=== PATIENT | female | born 1985 | race Caucasian/White ===

== ENCOUNTER → 2021-05-03 | Outpatient (CLI) | payer BC ==
[2021-05-03 19:05] LABS: Basophils # (A) 0.03 X 10*3/uL (0.00-0.10); Basophils % (A) 0.2 %; Eosinophils # (A) 0.12 X 10*3/uL (0.04-0.35); Eosinophils % (A) 0.8 %; HCT 40.5 % (37.2-46.3); HGB 13.2 g/dL (12.0-15.0); Lymphocytes # (A) 1.68 X 10*3/uL (0.90-5.00); Lymphocytes % (A) 11.8 %; MCH 29.5 pg (27.0-32.0); MCHC 32.6 g/dL (32.0-37.0); MCV 90.4 fL (80.0-97.0); Monocytes # (A) 0.42 X 10*3/uL (0.20-1.00); Monocytes % (A) 2.9 %; Neutrophils # (A) 11.93 X 10*3/uL (1.80-7.70); Neutrophils % (A) 83.7 %; Platelet Count 303 X 10*3/uL (140-440); RBC 4.48 X 10*6/uL (4.10-5.20); RDW 12.2 % (11.5-14.5); WBC 14.27 X 10*3/uL (4.50-10.00)
[2021-05-03 21:14] LABS: Gliadin AB IgA, Deaminated NEGATIVE (NEGATIVE); Gliadin AB IgA, Unit 2.9 U/mL; Gliadin AB IgG, Deaminated NEGATIVE (NEGATIVE)
== END | disposition home or self-care (01) ==
LOC: LABWHC1 14:18
PROVIDERS: ATTEND Allergy & Immunology
DX: K21.9 Gastro-esophageal reflux disease without esophagitis (principal); K52.9 Noninfective gastroenteritis and colitis, unspecified
CPT/HCPCS: 36415; 82784; 82785; 83516; 85025

== ENCOUNTER 2021-11-24 19:38 | Emergency (ER) | payer BC ==
[2021-11-24 21:18] VITALS: BP 118/78; PULSE 80; RESP 16; TEMP 98.1
[2021-11-24] MEDS ORDERED: MORPHINE SULFATE 2 MG/ML SYRINGE IM STA (22:15)
--- NOTE | 2021-11-24 22:22 | ED ---
General Adult HPI - General Chief complaint: Extremity Injury, Lower Stated complaint: arm injury Time Seen by Provider: 11/24/21 22:03 Source: patient Mode of arrival: ambulatory Limitations: no limitations - History of Present Illness Initial comments: She was a 36-year-old female presenting with a chief complaint of right forearm pain. This occurred earlier today when moving furniture she was walking backwards and tripped hitting her arm against the door jam. She is now complaining of pain localized at the mid forearm with radiation up to the elbow and down to the fingers. She is able to move the fingers but this causes a great deal of pain. She has full sensation of the fingertips. No pain or injury above the elbow. She admits to some swelling and abrasions to the arm. Denies numbness, tingling, redness, loss of range of motion, had injury, loss of consciousness, use of blood thinners. - Related Data Allergies Allergy/AdvReac Type Severity Reaction Status Date / Time Penicillins Allergy Rash/Hives Verified 11/24/21 21:18 Review of Systems ROS Statement: Those systems with pertinent positive or pertinent negative responses have been documented in the HPI. ROS Other: All systems not noted in ROS Statement are negative. Past Medical History Past Medical History: No Reported History History of Any Multi-Drug Resistant Organisms: None Reported Past Surgical History: Tubal Ligation Additional Past Surgical History / Comment(s): right ankle surgey Past Psychological History: Anxiety, Depression, PTSD Smoking Status: Never smoker Past Alcohol Use History: Occasional Past Drug Use History: Marijuana General Exam Limitations: no limitations General appearance: alert, in no apparent distress Head exam: Present: atraumatic, normocephalic, normal inspection Eye exam: Present: normal appearance, PERRL, EOMI. Absent: scleral icterus, conjunctival injection, periorbital swelling Neck exam: Present: normal inspection Right Shoulder Exam: Present: normal inspection, full ROM. Absent: tenderness, swelling Upper Arm exam: Present: normal inspection, full ROM. Absent: tenderness, swelling Elbow exam: Present: normal inspection. Absent: full ROM (Secondary to pain), tenderness Forearm Wrist exam: Present: tenderness, swelling, abrasion. Absent: normal inspection (Abrasions and swelling), full ROM (Indurated pain) Vascular: Absent: vascular compromise Neurological exam: Present: alert, oriented X3, CN II-XII intact Psychiatric exam: Present: normal affect, normal mood Skin exam: Present: warm, dry, intact, normal color. Absent: rash Course Vital Signs 11/24/21 21:13 Temperature 98.1 F Pulse Rate 80 Respiratory 16 Rate Blood Pressure 118/78 O2 Sat by Pulse 95 Oximetry Medical Decision Making - Medical Decision Making And is a 36-year-old female presenting with chief complaint of R forearm pain. I to presentation she was moving furniture and walking backwards when she tripped and hit her right forearm on a door jam. She admits to pain, swelling, abrasions, and pain with moving the wrist and fingers. She has full sensation and is neurovascularly intact. She was given 2 mg IM morphine for pain control. Forearm x-ray shows no acute fracture or dislocation. I educated the patient on resting, icing, compression, and elevation. Take Motrin and Tylenol at home as needed for pain control. Follow Up with PCP in one to 2 days. Follow-up with orthopedics if needed. Educated patient on return parameters. Return to the ER with worsening symptoms or new onset alarming symptoms. Answered all questions. Patient conveyed verbal understanding and agreed to the plan. - Radiology Data Radiology results: report reviewed, image reviewed Forearm X-ray: No acute fracture or dislocation Disposition Clinical Impression: Forearm strain Disposition: HOME SELF-CARE Condition: Good Instructions (If sedation given, give patient instructions): Arm Pain (ED) Additional Instructions: You may use Motrin and Tylenol at home as needed for pain control. Rest, ice, compress, elevate injury to prevent swelling and further pain. Follow up with PCP in one to 2 days. Follow-up with orthopedics if needed. Return to ER with worsening symptoms or new onset alarming symptoms, including but not limited to increased pain, swelling, redness, fever, chills, numbness, tingling, weakness. Is patient prescribed a controlled substance at d/c from ED?: No Referrals: None,Stated [Primary Care Provider] - 1-2 days Tobin Mansfield PAC [[employer]] - 12/01/21 Time of Disposition: 23:05
--- NOTE | 2021-11-24 22:52 | XR ---
EXAMINATION TYPE: XR forearm RT DATE OF EXAM: 11/24/2021 COMPARISON: NONE HISTORY: Fall. Pain TECHNIQUE: 2 views FINDINGS: Radius and ulna appear intact. I see no fracture nor dislocation. The elbow joint and wrist joint appear intact. IMPRESSION: Negative right forearm exam.
== END 2021-11-24 23:21 | disposition home or self-care (01) ==
LOC: EC 19:38
DX: S56.811A Strain of other muscles, fascia and tendons at forearm level, right arm, initial encounter (principal); Z88.0 Allergy status to penicillin; W01.0XXA Fall on same level from slipping, tripping and stumbling without subsequent striking against object, initial encounter; Y93.01 Activity, walking, marching and hiking
CPT/HCPCS: 73090; 99283; 96372; J2270

== ENCOUNTER → 2022-06-13 | Outpatient (CLI) | payer BC ==
--- NOTE | 2022-06-13 12:13 | XR ---
EXAMINATION TYPE: XR hand complete LT DATE OF EXAM: 06/13/2022 11:45 AM INDICATION: Patient age:Female; 37 years old; Reason for study: M47.12 M47.817 Spondylosis M79.642 Pain left hand; COMPARISON: None TECHNIQUE: Frontal, lateral and oblique views of the left hand were obtained. FINDINGS: Normal alignment of the visualized joints. No acute osseous pathology is identified. No e vidence of soft tissue swelling. IMPRESSION: No acute osseous pathology.
--- NOTE | 2022-06-13 12:19 | XR ---
EXAMINATION TYPE: XR cervical spine w flex/ext DATE OF EXAM: 06/13/2022 11:45 AM INDICATION: Patient age:Female; 37 years old; Reason for study: M47.12 M47.817 Spondylosis M79.642 Pain left hand; [facility]. COMPARISON: None TECHNIQUE: The cervical spine was imaged in 4 projections. Frontal, lateral, odontoid and bilateral o blique. Additional extension and flexion views were obtained. FINDINGS: The osseous structures show normal alignment without evidence of an acute fracture. There is no signi ficant osteophyte formation. The intervertebral disk spaces are preserved. Pedicles are intact. Sof t tissues are within normal limits. The odontoid appears intact. No abnormal gapping seen on flexion or extension views. Mild facet joint arthropathy noted. IMPRESSION: 1. No fracture or dislocation. 2. Mild degenerative disc disease changes of the cervical spine.
--- NOTE | 2022-06-13 12:22 | XR ---
EXAMINATION TYPE: XR lumbar spine 2 or 3V DATE OF EXAM: 06/13/2022 11:44 AM INDICATION: Patient age:Female; 37 years old; Reason for study: M47.12 M47.817 Spondylosis M79.642 Pain left hand; [facility]. COMPARISON: None TECHNIQUE: Frontal, lateral and coned in L5-S1 lateral views of the spine. FINDINGS: No evidence of any acute osseous pathology. No evidence of loss of vertebral body height i s seen. There is normal alignment of the lumbar vertebral bodies. No significant degeneration changes throughout the spine. Mild facet joint arthropathy changes. IMPRESSION: 1. No acute fracture. 2. Mild multilevel disc degeneration.
== END | disposition home or self-care (01) ==
LOC: RADXRMAIN 10:55
PROVIDERS: ATTEND Internal Medicine
DX: M47.12 Other spondylosis with myelopathy, cervical region (principal); M47.817 Spondylosis without myelopathy or radiculopathy, lumbosacral region; M79.642 Pain in left hand
CPT/HCPCS: 72052; 72100

== ENCOUNTER 2022-06-24 15:17 | Emergency (ER) | payer BC ==
[2022-06-24 15:58] VITALS: TEMP 98.2
[2022-06-24 16:33] LABS: Basophils % (A) 0 %; Eosinophils # (A) 0.2 k/uL (0-0.7); Eosinophils % (A) 2 %; HCT 39.9 % (34.0-46.0); HGB 13.8 gm/dL (11.4-16.0); Lymphocytes # (A) 1.7 k/uL (1.0-4.8); Lymphocytes % (A) 14 %; MCH 30.5 pg (25.0-35.0); MCHC 34.5 g/dL (31.0-37.0); MCV 88.3 fL (80.0-100.0); Mean Platelet Volume 7.8; Monocytes # (A) 0.4 k/uL (0-1.0); Monocytes % (A) 4 %; Neutrophils # (A) 9.3 k/uL (1.3-7.7); Neutrophils % (A) 78 %; Platelet Count 257 k/uL (150-450); RBC 4.52 m/uL (3.80-5.40); RDW 11.9 % (11.5-15.5); WBC 11.9 k/uL (3.8-10.6)
--- NOTE | 2022-06-24 16:38 | XR ---
KUB HISTORY: Right-sided abdomen pain Frontal KUB on 2 images, no comparisons Lung bases are clear. There is no evident bowel obstruction or pneumoperitoneum. Bone mineralization is normal. No pathologic calcification. IMPRESSION: No acute abnormalities evident.
[2022-06-24 16:41] LABS: ALT 15 U/L (4-34); AST 23 U/L (14-36); African American GFR (CKD) >90 (>60 ml/min/1.73 sqM); Albumin 4.6 g/dL (3.5-5.0); Alkaline Phosphatase 58 U/L (38-126); Amylase 66 U/L (30-110); Anion Gap 12 mmol/L; Blood Urea Nitrogen 16 mg/dL (7-17); Calcium 9.3 mg/dL (8.4-10.2); Carbon Dioxide 19 mmol/L (22-30); Chloride 104 mmol/L (98-107); Glucose 92 mg/dL (74-99); Lipase 128 U/L (23-300); Non-African American GFR(CKD) >90 (>60 ml/min/1.73 sqM); Potassium 4.2 mmol/L (3.5-5.1); Sodium 135 mmol/L (137-145); Total Bilirubin 0.5 mg/dL (0.2-1.3); Total Protein 7.7 g/dL (6.3-8.2)
[2022-06-24 16:48] LABS: Appearance,Urine Cloudy (Clear); Bacteria,Urine Rare /hpf; Bilirubin,Urine Negative (Negative); Blood,Urine Trace (Negative); Color,Urine Yellow; Glucose,Urine (UA) Negative (Negative); Ketones,Urine Negative (Negative); Leukocyte Esterase,Urine Moderate (Negative); Mucus,Urine Rare /hpf; Nitrite,Urine Negative (Negative); Protein,Urine Negative (Negative); RBC,Urine 2 /hpf (0-5); Specific Gravity,Urine 1.026 (1.001-1.035); Squamous Epithelial Cell,Urine 13 /hpf (0-4); Urobilinogen,Urine <2.0 mg/dL (<2.0); WBC,Urine 4 /hpf (0-5)
[2022-06-24] MEDS ORDERED: ONDANSETRON 4 MG/2 ML VIAL IVP STA (18:55)
[2022-06-24] MEDS ORDERED: HYDROmorphone 1 MG/ML 1 ML SYRINGE IVP STA ×2 (18:55→21:45)
[2022-06-24] MEDS ORDERED: SODIUM CHLORIDE 0.9% 1,000 ML IV STA (18:55)
[2022-06-24] MEDS ORDERED: FAMOTIDINE 20 MG/2 ML VIAL IV STA (18:56)
--- NOTE | 2022-06-24 19:00 | ED ---
General Adult HPI - General Chief complaint: Nausea/Vomiting/Diarrhea Stated complaint: ABD Pain,Right sided pain Time Seen by Provider: 06/24/22 18:07 Source: patient, RN notes reviewed Mode of arrival: ambulatory Limitations: no limitations - History of Present Illness Initial comments: Patient is a pleasant 37-year-old female presenting to the emergency department with concerns with abdominal discomfort. Onset of symptoms was mostly today. Patient has had some nausea and vomiting. Patient has had some diarrhea. Abdominal discomfort is more so to the right and upper. No new back pain. No fevers. No history of chronic similar symptoms previously. Patient has decreased appetite otherwise discomfort has not been associated with oral intak e. - Related Data Previous Rx's Medication Instructions Recorded Dicyclomine [Bentyl] 20 mg PO QID PRN #15 tablet 06/24/22 Allergies Allergy/AdvReac Type Severity Reaction Status Date / Time Penicillins Allergy Rash/Hives Verified 06/24/22 15:58 Review of Systems ROS Statement: Those systems with pertinent positive or pertinent negative responses have been documented in the HPI. ROS Other: All systems not noted in ROS Statement are negative. Constitutional: Denies: fever Eyes: Denies: eye pain ENT: Denies: ear pain Respiratory: Denies: cough Cardiovascular: Denies: chest pain Endocrine: Denies: fatigue Gastrointestinal: Reports: as per HPI, abdominal pain Genitourinary: Denies: dysuria Musculoskeletal: Denies: arthralgia Skin: Denies: rash Neurological: Denies: weakness Past Medical History Past Medical History: No Reported History History of Any Multi-Drug Resistant Organisms: MRSA Date of last positivie culture/infection: 2014 MDRO Source:: breast Past Surgical History: Tubal Ligation Additional Past Surgical History / Comment(s): right ankle surgey Past Psychological History: Anxiety, Depression, PTSD Smoking Status: Never smoker Past Alcohol Use History: Occasional Past Drug Use History: Marijuana General Exam Limitations: no limitations General appearance: alert, in no apparent distress Head exam: Present: normocephalic Eye exam: Present: normal appearance Neck exam: Present: normal inspection Respiratory exam: Present: normal lung sounds bilaterally Cardiovascular Exam: Present: regular rate, normal rhythm GI/Abdominal exam: Present: soft, tenderness (Moderate tenderness of her abdomen), normal bowel sounds. Absent: distended, guarding, rebound, rigid, pulsatile mass Extremities exam: Present: normal inspection Neurological exam: Present: alert Psychiatric exam: Present: normal affect, normal mood Skin exam: Present: normal color Course Vital Signs 06/24/22 06/24/22 06/24/22 15:54 21:07 21:08 Temperature 98.2 F Pulse Rate 54 L 77 Respiratory 20 18 Rate Blood Pressure 142/70 152/102 O2 Sat by Pulse 96 Oximetry Medical Decision Making - Medical Decision Making Patient reevaluated and resting comfortably in bed. Patient and family updated on results and need for follow-up. Patient states she is feeling much better. - Lab Data Result diagrams: 06/24/22 16:25 06/24/22 16:25 Lab Results 06/24/22 06/24/22 06/24/22 Range/Units 16:25 16:25 16:25 WBC 11.9 H (3.8-10.6) k/uL RBC 4.52 (3.80-5.40) m/uL Hgb 13.8 (11.4-16.0) gm/dL Hct 39.9 (34.0-46.0) % MCV 88.3 (80.0-100.0) fL MCH 30.5 (25.0-35.0) pg MCHC 34.5 (31.0-37.0) g/dL RDW 11.9 (11.5-15.5) % Plt Count 257 (150-450) k/uL MPV 7.8 Neutrophils % 78 % Lymphocytes % 14 % Monocytes % 4 % Eosinophils % 2 % Basophils % 0 % Neutrophils # 9.3 H (1.3-7.7) k/uL Lymphocytes # 1.7 (1.0-4.8) k/uL Monocytes # 0.4 (0-1.0) k/uL Eosinophils # 0.2 (0-0.7) k/uL Basophils # 0.0 (0-0.2) k/uL Sodium 135 L (137-145) mmol/L Potassium 4.2 (3.5-5.1) mmol/L Chloride 104 (98-107) mmol/L Carbon Dioxide 19 L (22-30) mmol/L Anion Gap 12 mmol/L BUN 16 (7-17) mg/dL Creatinine 0.82 (0.52-1.04) mg/dL Est GFR (CKD-EPI)AfAm >90 (>60 ml/min/1.73 sqM) Est GFR (CKD-EPI)NonAf >90 (>60 ml/min/1.73 sqM) Glucose 92 (74-99) mg/dL Calcium 9.3 (8.4-10.2) mg/dL Total Bilirubin 0.5 (0.2-1.3) mg/dL AST 23 (14-36) U/L ALT 15 (4-34) U/L Alkaline Phosphatase 58 (38-126) U/L Total Protein 7.7 (6.3-8.2) g/dL Albumin 4.6 (3.5-5.0) g/dL Amylase 66 (30-110) U/L Lipase 128 (23-300) U/L HCG, Qual Urine Color Yellow Urine Appearance Cloudy H (Clear) Urine pH 5.0 (5.0-8.0) Ur Specific Pioneer 1.026 (1.001-1.035) Urine Protein Negative (Negative) Urine Glucose (UA) Negative (Negative) Urine Ketones Negative (Negative) Urine Blood Trace H (Negative) Urine Nitrite Negative (Negative) Urine Bilirubin Negative (Negative) Urine Urobilinogen <2.0 (<2.0) mg/dL Ur Leukocyte Esterase Moderate H (Negative) Urine RBC 2 (0-5) /hpf Urine WBC 4 (0-5) /hpf Ur Squamous Epith Cells 13 H (0-4) /hpf Urine Bacteria Rare H (None) /hpf Urine Mucus Rare H (None) /hpf 06/24/22 Range/Units 16:25 WBC (3.8-10.6) k/uL RBC (3.80-5.40) m/uL Hgb (11.4-16.0) gm/dL Hct (34.0-46.0) % MCV (80.0-100.0) fL MCH (25.0-35.0) pg MCHC (31.0-37.0) g/dL RDW (11.5-15.5) % Plt Count (150-450) k/uL MPV Neutrophils % % Lymphocytes % % Monocytes % % Eosinophils % % Basophils % % Neutrophils # (1.3-7.7) k/uL Lymphocytes # (1.0-4.8) k/uL Monocytes # (0-1.0) k/uL Eosinophils # (0-0.7) k/uL Basophils # (0-0.2) k/uL Sodium (137-145) mmol/L Potassium (3.5-5.1) mmol/L Chloride (98-107) mmol/L Carbon Dioxide (22-30) mmol/L Anion Gap mmol/L BUN (7-17) mg/dL Creatinine (0.52-1.04) mg/dL Est GFR (CKD-EPI)AfAm (>60 ml/min/1.73 sqM) Est GFR (CKD-EPI)NonAf (>60 ml/min/1.73 sqM) Glucose (74-99) mg/dL Calcium (8.4-10.2) mg/dL Total Bilirubin (0.2-1.3) mg/dL AST (14-36) U/L ALT (4-34) U/L Alkaline Phosphatase (38-126) U/L Total Protein (6.3-8.2) g/dL Albumin (3.5-5.0) g/dL Amylase (30-110) U/L Lipase (23-300) U/L HCG, Qual Not Detected Urine Color Urine Appearance (Clear) Urine pH (5.0-8.0) Ur Specific Pioneer (1.001-1.035) Urine Protein (Negative) Urine Glucose (UA) (Negative) Urine Ketones (Negative) Urine Blood (Negative) Urine Nitrite (Negative) Urine Bilirubin (Negative) Urine Urobilinogen (<2.0) mg/dL Ur Leukocyte Esterase (Negative) Urine RBC (0-5) /hpf Urine WBC (0-5) /hpf Ur Squamous Epith Cells (0-4) /hpf Urine Bacteria (None) /hpf Urine Mucus (None) /hpf - Radiology Data Radiology results: report reviewed (Computed tomography scan of abdomen and pelvis reveals no acute process) Disposition Clinical Impression: Abdominal pain Disposition: HOME SELF-CARE Condition: Stable Instructions (If sedation given, give patient instructions): Abdominal Pain (ED) Additional Instructions: Prescriptions at the pharmacy. Please do follow-up with primary care physician in the next day or 2 for recheck. Return for uncontrolled vomiting, increased pain, fevers, worsening change in symptoms or any concerns. Prescriptions: Dicyclomine [Bentyl] 20 mg PO QID PRN #15 tablet PRN Reason: Pain Is patient prescribed a controlled substance at d/c from ED?: No Referrals: Radha Angulo MD [Primary Care Provider] - 1-2 days Time of Disposition: 21:21
--- NOTE | 2022-06-24 21:09 | CT ---
EXAMINATION TYPE: CT abdomen pelvis w con DATE OF EXAM: 06/24/2022 COMPARISON: HISTORY: Abdominal pain CT DLP: mGycm Automated exposure control for dose reduction was used. CONTRAST: Performed , patient injected with mL of . The contrast was Isovue 100 mL. Lung bases are clear. No pleural effusion. Heart size is normal. No pericardial effusion. Liver splee n and stomach pancreas gallbladder appear intact. The bile ducts are nondilated. There is no adrenal mass. Kidneys show satisfactory contrast opacification. No hydronephrosis. Ureter s are not dilated. No retroperitoneal adenopathy. The bladder distends smoothly. No inguinal hernia. No free fluid in the pelvis. Uterus is anteverted. The lumbar vertebrae have normal alignment. Posterior elements are intact. No compression fracture. Small bowel pattern is normal. Appendix not clearly seen. No sign thickened appendix. IMPRESSION: Negative CT scan of the abdomen and pelvis.
[2022-06-24 22:07] VITALS: BP 128/67; PULSE 70; RESP 19
== END 2022-06-24 22:08 | disposition home or self-care (01) ==
LOC: EC 15:17
DX: R10.9 Unspecified abdominal pain (principal); F12.90 Cannabis use, unspecified, uncomplicated; Z88.0 Allergy status to penicillin
CPT/HCPCS: 36415; 80053; 82150; 83690; 85025; 81001; 84703; 74018; 74177; 99284; 96374; 96375 ×2; 96376; 96361; J2405; J1170; Q9967

== ENCOUNTER 2023-05-04 17:01 | Emergency (ER) | payer BC ==
--- NOTE | 2023-05-04 17:21 | ED ---
General Adult HPI <Eric Gibson - Last Filed: 05/04/23 17:21> - General Source: patient, RN notes reviewed Mode of arrival: ambulatory Limitations: no limitations <Nathalie Tomlinson - Last Filed: 05/05/23 00:50> - General Stated complaint: neck injury Time Seen by Provider: 05/04/23 19:27 - History of Present Illness Initial comments: 38-year-old female presenting to the ED with a chief complaint neck pain. Patient states was pulling down pints 2 days ago and felt a pinch in her neck. Since then notes neck pain, headache, and intermittent floaters. Not the worst headache of her life. (Eric Gibson) 38-year-old female presenting with chief complaint of headache. Patient states that she injured her neck while doing yard work a few days ago. She states that she has history of migraines and has been getting more frequent migraines since this injury. She admits to pain as well as numbness and tingling that radiates from the neck down both arms. No fevers or chills. No nausea or vomiting. States that today she was riding in a car that was going through construction which caused aggravation to her injury. (Nathalie Tomlinson) - Related Data Home Medications Medication Instructions Recorded Confirmed Dextroamphetamine/Amphetamine 5 mg PO BID 10/13/22 10/18/22 [Adderall] Levothyroxine Sodium [Synthroid] 75 mg PO DAILY 10/13/22 10/18/22 Meloxicam [Mobic] 7.5 mg PO DAILY 10/13/22 10/18/22 Previous Rx's Medication Instructions Recorded Cyclobenzaprine [Flexeril] 10 mg PO TID PRN #15 tab 05/04/23 Allergies Allergy/AdvReac Type Severity Reaction Status Date / Time Penicillins Allergy Rash/Hives Verified 05/04/23 17:21 Review of Systems ROS Other: All systems not noted in ROS Statement are negative. <Eric Gibson - Last Filed: 05/04/23 17:21> ROS Other: All systems not noted in ROS Statement are negative. <Nathalie Tomlnison - Last Filed: 05/05/23 00:50> ROS Statement: Those systems with pertinent positive or pertinent negative responses have been documented in the HPI. Past Medical History Past Medical History: GERD/Reflux, Osteoarthritis (OA), Thyroid Disorder Additional Past Medical History / Comment(s): HYPOTHYROID, CHRONIC BACK PAIN AND JOINT PAIN, ADHD, recent loose stools abdominal pain with bloating, b/l tinnitus History of Any Multi-Drug Resistant Organisms: MRSA Date of last positivie culture/infection: 2014 MDRO Source:: breast Past Surgical History: Tubal Ligation Additional Past Surgical History / Comment(s): right ankle surgery Past Anesthesia/Blood Transfusion Reactions: No Reported Reaction Smoking Status: Former smoker <Eric Gibson - Last Filed: 05/04/23 17:21> General Exam Limitations: no limitations General appearance: alert Eye exam: Present: normal appearance Neck exam: Present: normal inspection Extremities exam: Present: normal inspection Back exam: Present: normal inspection Neurological exam: Present: alert <Eric Gibson - Last Filed: 05/04/23 17:21> Limitations: no limitations General appearance: alert, in no apparent distress Head exam: Present: atraumatic, normocephalic, normal inspection Eye exam: Present: normal appearance, PERRL, EOMI. Absent: scleral icterus, conjunctival injection, periorbital swelling Neck exam: Present: normal inspection, tenderness Respiratory exam: Absent: respiratory distress Neurological exam: Present: alert, oriented X3, CN II-XII intact Expanded Patient oriented to: Present: person, place, time Speech: Present: fluid speech Cranial nerves: EOM's Intact: Normal Eye Response: (4) open spontaneously Motor Response: (6) obeys commands Verbal Response: (5) oriented Ivan Total: 15 Psychiatric exam: Present: normal affect, normal mood Skin exam: Present: warm, dry, intact, normal color. Absent: rash <Nathalie Tomlinson - Last Filed: 05/05/23 00:50> Course Vital Signs 05/04/23 05/04/23 17:19 21:31 Temperature 98.1 F 98.2 F Pulse Rate 77 58 L Respiratory 20 18 Rate Blood Pressure 140/91 103/83 O2 Sat by Pulse 99 98 Oximetry Medical Decision Making <Eric Gibson - Last Filed: 05/04/23 17:21> - Lab Data Result diagrams: 05/04/23 19:50 05/04/23 19:50 <Nathalie Tomlinson - Last Filed: 05/05/23 00:50> - Medical Decision Making Quicknote performed. Signed Eric Gibson PA-C (Eric Gibson) Was pt. sent in by a medical professional or institution (, PA, BIOMEDICAL ENGINEERING DIRECTOR, urgent care, hospital, or correction...) When possible be specific @ -No Did you speak to anyone other than the patient for history (EMS, parent, family, police, friend...)? What history was obtained from this source @ -No Did you review nursing and triage notes (agree or disagree)? Why? @ -I reviewed and agree with nursing and triage notes Were old charts reviewed (outside hosp., previous admission, EMS record, old EKG, old radiological studies, urgent care reports/EKG's, correction records)? Report findings @ -No old charts were reviewed Differential Diagnosis (chest pain, altered mental status, abdominal pain women, abdominal pain men, vaginal bleeding, weakness, fever, dyspnea, syncope, headache, dizziness, GI bleed, back pain, seizure, CVA, palpatations, mental health, musculoskeletal)? @ -MDM Differential Headache: Migraine, tension, cluster, carbon monoxide, central venous thrombosis, pension karma temporal arteritis, acute closure glaucoma, intercranial hemorrhage, mastoiditis, sinusitis, head injury this is not meant to be an all-inclusive list. EKG interpreted by me (3pts min.). @ -As above X-rays interpreted by me (1pt min.). @ -X-ray shows no fracture, spinal straightening CT interpreted by me (1pt min.). @ -None done U/S interpreted by me (1pt. min.). @ -None done What testing was considered but not performed or refused? (CT, X-rays, U/S, labs)? Why? @ -None What meds were considered but not given or refused? Why? @ -None Did you discuss the management of the patient with other professionals (professionals i.e. , PA, BIOMEDICAL ENGINEERING DIRECTOR, lab, RT, psych nurse, social worker psychiatric, electrical experimental mechanic, teacher, training systems officer, geriatric case manager)? Give summary @ -No Was smoking cessation discussed for >3mins.? @ -No Was critical care preformed (if so, how long)? @ -No Were there social determinants of health that impacted care today? How? (Homelessness, low income, unemployed, alcoholism, drug addiction, transportation, low edu. Level, literacy, decrease access to med. care, [facility], rehab)? @ -No Was there de-escalation of care discussed even if they declined (Discuss DNR or withdrawal of care, Hospice)? DNR status @ -No What co-morbidities impacted this encounter? (DM, HTN, Smoking, COPD, CAD, Cancer, CVA, ARF, Chemo, Hep., AIDS, mental health diagnosis, sleep apnea, morbid obesity)? @ -None Was patient admitted / discharged? Hospital course, mention meds given and route, prescriptions, significant lab abnormalities, going to OR and other pertinent info. @ -38-year-old female presenting with chief complaint of headache and neck pain. Patient states that she injured her neck while doing yard work the other day. States that she has been more predisposed to migraine since the injury, she has history of migraines. States that these feel consistent with her regular migraines. Pain is located mainly on the right side of the neck. There is tenderness to the paraspinal muscles. No nuchal rigidity. No fevers. No vision or hearing changes. Patient is given migraine cocktail and Norflex, and reassessment she improvement in her symptoms. She is provided with a prescription for cyclobenzaprine at home. Follow-up with PCP. Report back to ER with any new or worsening symptoms. Discussed return parameters and answered all questions. Patient conveyed verbal understanding and agreed to the plan. I discussed this case in detail with my attending Dr. Sky Undiagnosed new problem with uncertain prognosis? @ -No Drug Therapy requiring intensive monitoring for toxicity (Heparin, Nitro, Insulin, Cardizem)? @ -No Were any procedures done? @ -No Diagnosis/symptom? @ -Neck strain, migraine Acute, or Chronic, or Acute on Chronic? @ -Acute Uncomplicated (without systemic symptoms) or Complicated (systemic symptoms)? @ -Uncomplicated Side effects of treatment? @ -No Exacerbation, Progression, or Severe Exacerbation? @ -No Poses a threat to life or bodily function? How? (Chest pain, USA, SD, pneumonia, PE, COPD, DKA, ARF, appy, cholecystitis, CVA, Diverticulitis, Homicidal, Suicidal, threat to staff... and all critical care pts) @ -No (Nathalie Tomlinson) - Lab Data Lab Results 05/04/23 05/04/23 05/04/23 Range/Units 19:50 19:50 19:50 WBC 9.9 (3.8-10.6) k/uL RBC 4.43 (3.80-5.40) m/uL Hgb 13.7 (11.4-16.0) gm/dL Hct 39.7 (34.0-46.0) % MCV 89.6 (80.0-100.0) fL MCH 31.0 (25.0-35.0) pg MCHC 34.6 (31.0-37.0) g/dL RDW 12.4 (11.5-15.5) % Plt Count 323 (150-450) k/uL MPV 7.5 Neutrophils % 64 % Lymphocytes % 26 % Monocytes % 5 % Eosinophils % 4 % Basophils % 0 % Neutrophils # 6.3 (1.3-7.7) k/uL Lymphocytes # 2.5 (1.0-4.8) k/uL Monocytes # 0.5 (0-1.0) k/uL Eosinophils # 0.4 (0-0.7) k/uL Basophils # 0.0 (0-0.2) k/uL Sodium 137 (137-145) mmol/L Potassium 4.2 (3.5-5.1) mmol/L Chloride 103 (98-107) mmol/L Carbon Dioxide 24 (22-30) mmol/L Anion Gap 10 mmol/L BUN 12 (7-17) mg/dL Creatinine 0.78 (0.52-1.04) mg/dL Est GFR (CKD-EPI)AfAm >90 (>60 ml/min/1.73 sqM) Est GFR (CKD-EPI)NonAf >90 (>60 ml/min/1.73 sqM) Glucose 85 (74-99) mg/dL Calcium 9.6 (8.4-10.2) mg/dL Total Bilirubin 0.6 (0.2-1.3) mg/dL AST 36 (14-36) U/L ALT 21 (4-34) U/L Alkaline Phosphatase 56 (38-126) U/L Total Protein 8.3 H (6.3-8.2) g/dL Albumin 4.7 (3.5-5.0) g/dL Urine Color YELLOW Urine Appearance Cloudy H (Clear) Urine pH 5.0 (5.0-8.0) Ur Specific [place] 1.007 (1.001-1.035) Urine Protein Negative (Negative) Urine Glucose (UA) Negative (Negative) Urine Ketones Negative (Negative) Urine Blood Negative (Negative) Urine Nitrite Negative (Negative) Urine Bilirubin Negative (Negative) Urine Urobilinogen <2.0 (<2.0) mg/dL Ur Leukocyte Esterase Large H (Negative) Urine RBC 9 H (0-5) /hpf Urine WBC 6 H (0-5) /hpf Ur Squamous Epith Cells 12 H (0-4) /hpf Urine Bacteria Rare H (None) /hpf Urine Yeast (Budding) Occasional H (None) /hpf Urine HCG, Qual (Not Detectd) 05/04/23 Range/Units 19:50 WBC (3.8-10.6) k/uL RBC (3.80-5.40) m/uL Hgb (11.4-16.0) gm/dL Hct (34.0-46.0) % MCV (80.0-100.0) fL MCH (25.0-35.0) pg MCHC (31.0-37.0) g/dL RDW (11.5-15.5) % Plt Count (150-450) k/uL MPV Neutrophils % % Lymphocytes % % Monocytes % % Eosinophils % % Basophils % % Neutrophils # (1.3-7.7) k/uL Lymphocytes # (1.0-4.8) k/uL Monocytes # (0-1.0) k/uL Eosinophils # (0-0.7) k/uL Basophils # (0-0.2) k/uL Sodium (137-145) mmol/L Potassium (3.5-5.1) mmol/L Chloride (98-107) mmol/L Carbon Dioxide (22-30) mmol/L Anion Gap mmol/L BUN (7-17) mg/dL Creatinine (0.52-1.04) mg/dL Est GFR (CKD-EPI)AfAm (>60 ml/min/1.73 sqM) Est GFR (CKD-EPI)NonAf (>60 ml/min/1.73 sqM) Glucose (74-99) mg/dL Calcium (8.4-10.2) mg/dL Total Bilirubin (0.2-1.3) mg/dL AST (14-36) U/L ALT (4-34) U/L Alkaline Phosphatase (38-126) U/L Total Protein (6.3-8.2) g/dL Albumin (3.5-5.0) g/dL Urine Color Urine Appearance (Clear) Urine pH (5.0-8.0) Ur Specific [place] (1.001-1.035) Urine Protein (Negative) Urine Glucose (UA) (Negative) Urine Ketones (Negative) Urine Blood (Negative) Urine Nitrite (Negative) Urine Bilirubin (Negative) Urine Urobilinogen (<2.0) mg/dL Ur Leukocyte Esterase (Negative) Urine RBC (0-5) /hpf Urine WBC (0-5) /hpf Ur Squamous Epith Cells (0-4) /hpf Urine Bacteria (None) /hpf Urine Yeast (Budding) (None) /hpf Urine HCG, Qual Not Detected (Not Detectd) Disposition <Eric Gibson - Last Filed: 05/04/23 17:21> Is patient prescribed a controlled substance at d/c from ED?: No Time of Disposition: 21:03 <Nathalie Tomlinson - Last Filed: 05/05/23 00:50> Clinical Impression: Strain of neck muscle Disposition: HOME SELF-CARE Condition: Good Instructions (If sedation given, give patient instructions): Cervical Strain (ED), Muscle Spasm (ED) Additional Instructions: Follow-up with PCP. Report back to ER with any new or worsening symptoms. Medication as prescribed, do not take cyclobenzaprine before driving or operati ng heavy machinery as it may cause drowsiness Prescriptions: Cyclobenzaprine [Flexeril] 10 mg PO TID PRN #15 tab PRN Reason: Spasms Referrals: Radha Angulo MD [Primary Care Provider] - 1-2 days
--- NOTE | 2023-05-04 19:18 | XR ---
PROCEDURE: XR cervical spine limited - 3V DATE AND TIME: 05/04/2023 6:05 PM CLINICAL INDICATION: PHH; neck pain TECHNIQUE: Department protocol COMPARISON: None FINDINGS: There is no fracture or malalignment. No focal skeletal findings. There is mild straightening to the upper and mid cervical spine, but no significant cervical spondylo sis changes. The soft tissues are unremarkable. IMPRESSION: Cervical spine straightening.
[2023-05-04] MEDS ORDERED: diphenhydrAMINE 50 MG/ML 1 ML VIAL IVP STA (19:23)
[2023-05-04] MEDS ORDERED: KETOROLAC 15 MG/ML 1 ML VIAL IVP STA (19:23)
[2023-05-04] MEDS ORDERED: METOCLOPRAMIDE 5 MG/ML 2 ML VIAL IVP STA (19:23)
[2023-05-04 20:03] LABS: Basophils % (A) 0 %; Eosinophils # (A) 0.4 k/uL (0-0.7); Eosinophils % (A) 4 %; HCT 39.7 % (34.0-46.0); HGB 13.7 gm/dL (11.4-16.0); Lymphocytes # (A) 2.5 k/uL (1.0-4.8); Lymphocytes % (A) 26 %; MCHC 34.6 g/dL (31.0-37.0); MCV 89.6 fL (80.0-100.0); Mean Platelet Volume 7.5; Monocytes # (A) 0.5 k/uL (0-1.0); Monocytes % (A) 5 %; Neutrophils # (A) 6.3 k/uL (1.3-7.7); Neutrophils % (A) 64 %; Platelet Count 323 k/uL (150-450); RBC 4.43 m/uL (3.80-5.40); RDW 12.4 % (11.5-15.5); WBC 9.9 k/uL (3.8-10.6)
[2023-05-04 20:12] LABS: Appearance,Urine Cloudy (Clear); Bacteria,Urine Rare /hpf; Bilirubin,Urine Negative (Negative); Blood,Urine Negative (Negative); Budding Yeast,Urine Occasional /hpf; Glucose,Urine (UA) Negative (Negative); Ketones,Urine Negative (Negative); Leukocyte Esterase,Urine Large (Negative); Nitrite,Urine Negative (Negative); Protein,Urine Negative (Negative); RBC,Urine 9 /hpf (0-5); Specific Gravity,Urine 1.007 (1.001-1.035); Squamous Epithelial Cell,Urine 12 /hpf (0-4); Urobilinogen,Urine <2.0 mg/dL (<2.0); WBC,Urine 6 /hpf (0-5)
[2023-05-04 20:13] LABS: Color,Urine YELLOW
[2023-05-04 20:17] LABS: ALT 21 U/L (4-34); AST 36 U/L (14-36); African American GFR (CKD) >90 (>60 ml/min/1.73 sqM); Albumin 4.7 g/dL (3.5-5.0); Alkaline Phosphatase 56 U/L (38-126); Anion Gap 10 mmol/L; Blood Urea Nitrogen 12 mg/dL (7-17); Calcium 9.6 mg/dL (8.4-10.2); Carbon Dioxide 24 mmol/L (22-30); Chloride 103 mmol/L (98-107); Glucose 85 mg/dL (74-99); Non-African American GFR(CKD) >90 (>60 ml/min/1.73 sqM); Potassium 4.2 mmol/L (3.5-5.1); Sodium 137 mmol/L (137-145); Total Bilirubin 0.6 mg/dL (0.2-1.3); Total Protein 8.3 g/dL (6.3-8.2)
[2023-05-04] MEDS ORDERED: ORPHENADRINE 30 MG/ML 2 ML VIAL IVP STA (20:29)
[2023-05-04 21:33] VITALS: BP 103/83; PULSE 58; RESP 18; TEMP 98.2
== END 2023-05-04 21:31 | disposition home or self-care (01) ==
LOC: EC 17:01
DX: S16.1XXA Strain of muscle, fascia and tendon at neck level, initial encounter (principal); E03.9 Hypothyroidism, unspecified; Z79.890 Hormone replacement therapy; Z87.891 Personal history of nicotine dependence; Z88.0 Allergy status to penicillin; X58.XXXA Exposure to other specified factors, initial encounter
CPT/HCPCS: 96374; 96375 ×3; 36415; 80053; 85025; 81001; 81025; 72040; 99284; J1200; J2360; J2765; J1885; 99283

== ENCOUNTER 2023-10-09 12:25 | Emergency (ER) | payer BC ==
[2023-10-09 13:15] LABS: Basophils % (A) 0 %; Eosinophils # (A) 0.4 k/uL (0-0.7); Eosinophils % (A) 4 %; HCT 41.5 % (34.0-46.0); HGB 13.9 gm/dL (11.4-16.0); Lymphocytes # (A) 2.1 k/uL (1.0-4.8); Lymphocytes % (A) 21 %; MCH 30.3 pg (25.0-35.0); MCHC 33.4 g/dL (31.0-37.0); MCV 90.6 fL (80.0-100.0); Mean Platelet Volume 7.3; Monocytes # (A) 0.4 k/uL (0-1.0); Monocytes % (A) 4 %; Neutrophils % (A) 70 %; Platelet Count 285 k/uL (150-450); RBC 4.58 m/uL (3.80-5.40); RDW 12.3 % (11.5-15.5); WBC 10.1 k/uL (3.8-10.6)
--- NOTE | 2023-10-09 13:30 | XR ---
EXAMINATION TYPE: XR chest 2V DATE OF EXAM: 10/09/2023 COMPARISON: None HISTORY: 38-year-old female with chest pain TECHNIQUE: PA and lateral views FINDINGS: The cardiomediastinal silhouette, aorta, and pulmonary vasculature are within normal limits. Lungs an d pleural spaces are clear. IMPRESSION: No acute cardiopulmonary process.
[2023-10-09 13:34] LABS: INR 0.9 (<1.2); Partial Thromboplastin Time 24.6 sec (22.0-30.0)
[2023-10-09 13:37] LABS: ALT 17 U/L (4-34); AST 25 U/L (14-36); African American GFR (CKD) >90 (>60 ml/min/1.73 sqM); Albumin 4.6 g/dL (3.5-5.0); Alkaline Phosphatase 62 U/L (38-126); Blood Urea Nitrogen 18 mg/dL (7-17); Calcium 9.5 mg/dL (8.4-10.2); Carbon Dioxide 21 mmol/L (22-30); Glucose 83 mg/dL (74-99); Lipase 92 U/L (23-300); Non-African American GFR(CKD) >90 (>60 ml/min/1.73 sqM); Total Bilirubin 0.9 mg/dL (0.2-1.3)
[2023-10-09 13:38] LABS: Anion Gap 8 mmol/L; Chloride 107 mmol/L (98-107); Potassium 4.8 mmol/L (3.5-5.1); Sodium 136 mmol/L (137-145)
--- NOTE | 2023-10-09 13:52 | ED ---
Chest Pain HPI - General Source: patient, RN notes reviewed Mode of arrival: ambulatory Limitations: no limitations <Femi Young - Last Filed: 10/09/23 13:49> - General Source: patient, RN notes reviewed Mode of arrival: ambulatory Limitations: no limitations - History of Present Illness MD Complaint: chest pain <Nabila Faustin - Last Filed: 10/09/23 21:58> - General Chief Complaint: Chest Pain Stated Complaint: chest pain Time Seen by Provider: 10/09/23 13:49 - History of Present Illness Initial Comments: 38-year-old female presents emergency department chief complaint of chest pain. Patient states that it started few hours prior to arrival. Patient states that the pain is in her central region just upper chest. She states she is lightheaded, dizzy. Patient has no cardiac history no history of lung disease no recent traveling. Patient states that she is on Vyvanse no other medications. Patient denies ending like this in the past. She states that it started when she was going to have intercourse. (Femi Young) This is a 38-year-old female who presents to the emergency department for chest pain. This was a fairly sudden onset about an hour prior to arrival. States it is in the central region and near the left shoulder. Pain is sharp and she has associated shortness of breath. Denies any history of similar symptoms in the past. She has no family or personal history of cardiac illness. While in the waiting room for a couple of hours, she notes that the pain did start to slowly subside, as well as the shortness of breath. (Nabila Faustin) - Related Data Home Medications Medication Instructions Recorded Confirmed Dextroamphetamine/Amphetamine 5 mg PO BID 10/13/22 10/18/22 [Adderall] Levothyroxine Sodium [Synthroid] 75 mg PO DAILY 10/13/22 10/18/22 Meloxicam [Mobic] 7.5 mg PO DAILY 10/13/22 10/18/22 Previous Rx's Medication Instructions Recorded Cyclobenzaprine [Flexeril] 10 mg PO TID PRN #15 tab 05/04/23 Allergies Allergy/AdvReac Type Severity Reaction Status Date / Time Penicillins Allergy Rash/Hives Verified 10/09/23 12:29 Review of Systems ROS Other: All systems not noted in ROS Statement are negative. <NancyFemi miranda - Last Filed: 10/09/23 13:49> ROS Other: All systems not noted in ROS Statement are negative. <Nabila Faustin - Last Filed: 10/09/23 21:58> ROS Statement: Those systems with pertinent positive or pertinent negative responses have been documented in the HPI. Past Medical History Past Medical History: GERD/Reflux, Osteoarthritis (OA), Thyroid Disorder Additional Past Medical History / Comment(s): HYPOTHYROID, CHRONIC BACK PAIN AND JOINT PAIN, ADHD, recent loose stools abdominal pain with bloating, b/l tinnitus History of Any Multi-Drug Resistant Organisms: MRSA Date of last positivie culture/infection: 2014 MDRO Source:: breast Past Surgical History: Tubal Ligation Additional Past Surgical History / Comment(s): right ankle surgery Past Anesthesia/Blood Transfusion Reactions: No Reported Reaction Past Psychological History: ADD/ADHD, Anxiety, Depression, PTSD Smoking Status: Former smoker Past Alcohol Use History: Occasional Past Drug Use History: Marijuana <NancyFemi miranda - Last Filed: 10/09/23 13:49> General Exam Limitations: no limitations <Femi Young - Last Filed: 10/09/23 13:49> Limitations: no limitations General appearance: alert, in no apparent distress Head exam: Present: atraumatic, normocephalic, normal inspection Respiratory exam: Present: normal lung sounds bilaterally. Absent: respiratory distress, wheezes, rales, rhonchi, stridor Cardiovascular Exam: Present: regular rate, normal rhythm, normal heart sounds. Absent: systolic murmur, diastolic murmur, rubs, gallop, clicks Extremities exam: Present: other (Tenderness to palpation of the left shoulder and with ROM of the left upper extremity. ) Neurological exam: Present: alert, oriented X3, CN II-XII intact Psychiatric exam: Present: normal affect, normal mood Skin exam: Present: warm, dry, intact, normal color. Absent: rash <Nabila Faustin - Last Filed: 10/09/23 21:58> - General Exam Comments Initial Comments: Visual Physical Exam Vital signs reviewed General: Well-appearing, nontoxic, no acute distress. Head: Normocephalic, atraumatic Eyes: PERRLA, EOMI ENT: Airway patent Chest: Nonlabored breathing Skin: No visual rash, normal skin tone Neuro: Alert and oriented 3 Musculoskeletal: No gross abnormalities (Femi Young) Course Vital Signs 10/09/23 10/09/23 10/09/23 12:26 15:39 17:37 Temperature 98.1 F 98.3 F Pulse Rate 77 75 77 Respiratory 22 18 18 Rate Blood Pressure 117/81 122/82 114/77 O2 Sat by Pulse 99 97 100 Oximetry Chest Pain MDM <Femi Young - Last Filed: 10/09/23 13:49> <Nabila Faustin - Last Filed: 10/09/23 21:58> - MDM I completed the quick note portion of this chart signed Femi Young PA-C (Femi Young) This is a 30-year-old female presents emergency department for chest pain. Was pt. sent in by a medical professional or institution? @ -No Did you speak to anyone other than the patient for history? @ No Did you review nursing and triage notes? @ -Yes, and I agree, it is accurate with regards to the patient's symptoms. Were old charts reviewed? @ -No Differential Diagnosis? @ -Differential Chest Pain: Stable Angina, Unstable Angina, STEMI, NSTEMI Aortic Dissection, Pneumothorax, Musculoskeletal, Esophageal Spasm GERD, Cholecystitis, Pancreatitis, Zoster, this is not meant to be an all-inclusive list. EKG interpreted by me (3pts min.)? @ -EKG interpreted by me demonstrating the following: Sinus rhythm. Ventricular rate 76 bpm, MS interval 139 ms, QRS duration 93 ms, QTC 409 ms. X-rays interpreted by me (1pt min.)? @ -Chest x-ray obtained, my interpretation identifies no localized consolid ations or infiltrates. CT interpreted by me (1pt min.)? @ -Not obtained U/S interpreted by me (1pt. min.)? @ -Not obtained What testing was considered but not performed? (CT, X-rays, U/S, labs)? Why? @ -None What meds were considered but not given? Why? @ -None Did you discuss the management of the patient with other professionals? @ -No Did you reconcile home meds? @ -No Was smoking cessation discussed for >3mins.? @ -No Was critical care preformed (if so, how long)? @ -No Were there social determinants of health that impacted care today? How? (Homelessness, low income, unemployed, alcoholism, drug addiction, transportation, low edu. Level, literacy, decrease access to med. care, [facility], rehab)? @ -No Was there de-escalation of care discussed even if they declined? (Discuss DNR or withdrawal of care, Hospice)? @ -No What co-morbidities impacted this encounter? (DM, HTN, Smoking, COPD, CAD, Cancer, CVA, Hep., AIDS, mental health diagnosis, sleep apnea, morbid obesity)? @ -None Was patient admitted / discharged? @ -Discharged. Lab work obtained and found to be unremarkable, including a negative troponin and negative d-dimer. Due to the timing of her symptoms, we did repeat a second troponin, which was also negative. She was given a trial of nitroglycerin, however she had no improvement in symptoms afterwards and was then given Norflex and Toradol, which she felt was helpful. Patient discharged home in stable condition. Advised Ibuprofen and Tylenol as needed for pain relief. Undiagnosed new problem with uncertain prognosis? @ -None Drug Therapy requiring intensive monitoring for toxicity (Heparin, Nitro, Insulin, Cardizem)? @ -None Were any procedures done? @ -None Diagnosis/symptom? @ -Chest pain Acute, or Chronic, or Acute on Chronic? @ -Acute Uncomplicated (without systemic symptoms) or Complicated (systemic symptoms)? @ -Uncomplicated Side effects of treatment? @ -None Exacerbation, Progression, or Severe Exacerbation] @ -Not applicable Poses a threat to life or bodily function? @ -No Return precautions reviewed in depth, the patient is instructed to return to the emergency department with any new, worsening, or concerning symptoms. Patient verbalized understanding. This case was discussed in detail with the attending ED physician, Dr. Delgado. Presentation, findings, and treatment plan discussed in detail as well. (Nabila Faustin) Disposition <Femi Yuong - Last Filed: 10/09/23 13:49> Is patient prescribed a controlled substance at d/c from ED?: No Time of Disposition: 17:22 <Nabila Faustin - Last Filed: 10/09/23 21:58> Clinical Impression: Chest pain Disposition: HOME SELF-CARE Instructions (If sedation given, give patient instructions): Chest Pain (ED), Noncardiac Chest Pain (ED) Additional Instructions: Return to the emergency department with any new, worsening, or concerning symptoms. Alternate with ibuprofen and Tylenol as needed for pain relief. Follow up with your primary care provider in 1-2 days. Referrals: Radha Angulo MD [Primary Care Provider] - 1-2 days
[2023-10-09] MEDS ORDERED: ORPHENADRINE 30 MG/ML 2 ML VIAL IVP STA (15:50)
[2023-10-09] MEDS ORDERED: NITROGLYCERIN SL TABS 0.4 MG TAB SUBLINGUAL STA (15:50)
[2023-10-09] MEDS ORDERED: KETOROLAC 15 MG/ML 1 ML VIAL IVP STA (15:50)
[2023-10-09] MEDS ORDERED: SODIUM CHLORIDE 0.9% 1,000 ML IV STA (15:50)
[2023-10-09 16:11] VITALS: RESP 18
[2023-10-09 17:55] VITALS: BP 114/77; PULSE 77; TEMP 98.3
== END 2023-10-09 17:46 | disposition home or self-care (01) ==
LOC: EC 12:25
DX: R07.9 Chest pain, unspecified (principal); E03.9 Hypothyroidism, unspecified; F12.90 Cannabis use, unspecified, uncomplicated; Z79.1 Long term (current) use of non-steroidal anti-inflammatories (NSAID); Z79.890 Hormone replacement therapy; Z87.891 Personal history of nicotine dependence; Z88.0 Allergy status to penicillin; Z86.59 Personal history of other mental and behavioral disorders; Z20.822 Contact with and (suspected) exposure to COVID-19
CPT/HCPCS: 36415; 93005; 85379; 80053; 83690; 83735; 84484; 85025; 85610; 85730; 87636; 71046; 99285; 96374; 96375; 96361; J2360; J1885

== ENCOUNTER 2023-10-23 01:39 | Emergency (ER) | payer BC ==
[2023-10-23 02:05] VITALS: TEMP 98.4
[2023-10-23] MEDS: SODIUM CHLORIDE 0.9% 1,000 ML IV ONE (02:07)
[2023-10-23] MEDS: ONDANSETRON 4 MG/2 ML VIAL IVP STA (02:10)
[2023-10-23] MEDS: KETOROLAC 15 MG/ML 1 ML VIAL IVP STA ×2 (02:10→08:57)
[2023-10-23 02:20] LABS: Basophils % (A) 0 %; Eosinophils # (A) 0.1 k/uL (0-0.7); Eosinophils % (A) 1 %; HCT 36.1 % (34.0-46.0); HGB 12.4 gm/dL (11.4-16.0); Lymphocytes # (A) 2.9 k/uL (1.0-4.8); Lymphocytes % (A) 21 %; MCH 31.1 pg (25.0-35.0); MCHC 34.4 g/dL (31.0-37.0); MCV 90.4 fL (80.0-100.0); Mean Platelet Volume 7.2; Monocytes # (A) 0.7 k/uL (0-1.0); Monocytes % (A) 5 %; Neutrophils % (A) 72 %; Platelet Count 316 k/uL (150-450); RBC 3.99 m/uL (3.80-5.40); RDW 12.2 % (11.5-15.5); WBC 13.9 k/uL (3.8-10.6)
[2023-10-23 02:40] LABS: ALT 16 U/L (4-34); AST 23 U/L (14-36); African American GFR (CKD) >90 (>60 ml/min/1.73 sqM); Albumin 3.9 g/dL (3.5-5.0); Alkaline Phosphatase 50 U/L (38-126); Anion Gap 10 mmol/L; Blood Urea Nitrogen 14 mg/dL (7-17); Calcium 8.5 mg/dL (8.4-10.2); Carbon Dioxide 21 mmol/L (22-30); Chloride 109 mmol/L (98-107); Glucose 96 mg/dL (74-99); Non-African American GFR(CKD) >90 (>60 ml/min/1.73 sqM); Potassium 3.8 mmol/L (3.5-5.1); Sodium 140 mmol/L (137-145); Total Bilirubin 0.3 mg/dL (0.2-1.3); Total Protein 6.7 g/dL (6.3-8.2)
--- NOTE | 2023-10-23 03:13 | ED ---
Abdominal Pain HPI - General Source: patient Mode of arrival: EMS Limitations: no limitations <Nathalie Tomlinson - Last Filed: 10/23/23 05:33> - General Source: patient, RN notes reviewed Mode of arrival: EMS Limitations: no limitations <[email or web address] - Last Filed: 10/23/23 14:54> - General Chief Complaint: Abdominal Pain Stated Complaint: Abdominal Pain Time Seen by Provider: 10/23/23 01:51 - History of Present Illness Initial Comments: 38-year-old female presenting with chief complaint of abdominal pain. The pain started suddenly this evening and woke her from her sleep. She states that it s pans across the entire lower abdomen. Feels like a cramping sensation that comes in waves. Patient states that she felt the urge to have a bowel movement, however after 2 episodes of diarrhea the pain was not relieved. Patient was starting to feel a bit lightheaded during this episode. Admits to nausea with no vomiting. No cough, congestion, sore throat, fever, chills, hematochezia, melena, dysuria, hematuria, chest pain, difficulty breathing. (Nathalie Tomlinson) - Related Data Home Medications Medication Instructions Recorded Confirmed Dextroamphetamine/Amphetamine 5 mg PO BID 10/13/22 10/18/22 [Adderall] Levothyroxine Sodium [Synthroid] 75 mg PO DAILY 10/13/22 10/18/22 Meloxicam [Mobic] 7.5 mg PO DAILY 10/13/22 10/18/22 Previous Rx's Medication Instructions Recorded Cyclobenzaprine [Flexeril] 10 mg PO TID PRN #15 tab 05/04/23 Dicyclomine [Bentyl] 20 mg PO QID PRN #20 tablet 10/23/23 Ketorolac [Toradol] 10 mg PO Q6HR PRN #15 tab 10/23/23 Ondansetron Odt [Zofran Odt] 4 mg PO Q8HR PRN #15 tab 10/23/23 Allergies Allergy/AdvReac Type Severity Reaction Status Date / Time Penicillins Allergy Rash/Hives Verified 10/09/23 12:29 Review of Systems ROS Other: All systems not noted in ROS Statement are negative. <Nathalie Tomlinson - Last Filed: 10/23/23 05:33> ROS Other: All systems not noted in ROS Statement are negative. <Nabila Faustin - Last Filed: 10/23/23 14:54> ROS Statement: Those systems with pertinent positive or pertinent negative responses have been documented in the HPI. Past Medical History Past Medical History: GERD/Reflux, Osteoarthritis (OA), Thyroid Disorder Additional Past Medical History / Comment(s): HYPOTHYROID, CHRONIC BACK PAIN AND JOINT PAIN, ADHD, recent loose stools abdominal pain with bloating, b/l tinnitus History of Any Multi-Drug Resistant Organisms: MRSA Date of last positivie culture/infection: 2014 MDRO Source:: breast Past Surgical History: Tubal Ligation Additional Past Surgical History / Comment(s): right ankle surgery Past Anesthesia/Blood Transfusion Reactions: No Reported Reaction Past Psychological History: ADD/ADHD, Anxiety, Depression, PTSD Smoking Status: Former smoker Past Alcohol Use History: Occasional Past Drug Use History: Marijuana <Nathalie Tomlinson - Last Filed: 10/23/23 05:33> General Exam Limitations: no limitations General appearance: alert, in no apparent distress Head exam: Present: atraumatic, normocephalic Eye exam: Present: normal appearance Neck exam: Present: normal inspection Respiratory exam: Present: normal lung sounds bilaterally. Absent: respiratory distress, wheezes, rales, rhonchi, stridor Cardiovascular Exam: Present: regular rate, normal rhythm, normal heart sounds. Absent: systolic murmur, diastolic murmur, rubs, gallop, clicks GI/Abdominal exam: Present: soft, tenderness (Lower abdomen). Absent: distended, guarding, rebound, rigid Neurological exam: Present: alert, oriented X3 Skin exam: Present: warm, dry <Nathalie Tomlinson - Last Filed: 10/23/23 05:33> Course Vital Signs 10/23/23 10/23/23 10/23/23 01:42 02:53 07:40 Temperature 98.4 F Pulse Rate 68 77 83 Respiratory 16 18 16 Rate Blood Pressure 147/104 129/96 123/81 O2 Sat by Pulse 94 L 99 97 Oximetry 10/23/23 09:10 Temperature Pulse Rate 76 Respiratory 16 Rate Blood Pressure 120/75 O2 Sat by Pulse 97 Oximetry Medical Decision Making - Lab Data Result diagrams: 10/23/23 02:03 10/23/23 02:03 <BushraJessicaelmer - Last Filed: 10/23/23 05:33> - Lab Data Result diagrams: 10/23/23 02:03 10/23/23 02:03 - Radiology Data Radiology results: report reviewed, image reviewed <Nabila Faustin - Last Filed: 10/23/23 14:54> - Medical Decision Making Was pt. sent in by a medical professional or institution (, JENNI, C [employer] DEVELOPER, urgent care, hospital, or half-way...) When possible be specific @ -No Did you speak to anyone other than the patient for history (EMS, parent, family, police, friend...)? What history was obtained from this source @ -No Did you review nursing and triage notes (agree or disagree)? Why? @ -I reviewed and agree with nursing and triage notes Were old charts reviewed (outside hosp., previous admission, EMS record, old EKG, old radiological studies, urgent care reports/EKG's, half-way records)? Report findings @ -No old charts were reviewed Differential Diagnosis (chest pain, altered mental status, abdominal pain women, abdominal pain men, vaginal bleeding, weakness, fever, dyspnea, syncope, headache, dizziness, GI bleed, back pain, seizure, CVA, palpatations, mental health, musculoskeletal)? @ -MDM Differential Abdominal Pain Women: Appendicitis, Cholecystitis, diverticulosis, ischemic bowel, pancreatitis, hepatitis, UTI, gastroenteritis, AAA, incarcerated hernia, bowel obstruction, constipation, inflammatory bowel, hepatitis, peptic ulcer disease, splenic infarction, perforated viscus, vulvitis, ovarian torsion, PID, kidney stone, placenta abruption... This is not meant to be an all-inclusive list EKG interpreted by me (3pts min.). @ -As above X-rays interpreted by me (1pt min.). @ -None done CT interpreted by me (1pt min.). @ -None done U/S interpreted by me (1pt. min.). @ -None done What testing was considered but not performed or refused? (CT, X-rays, U/S, labs)? Why? @ -None What meds were considered but not given or refused? Why? @ -None Did you discuss the management of the patient with other professionals (professionals i.e. JENNI Andrade, C [employer]PF DEVELOPER, lab, RT, psych nurse, social worker aide, child care provider, teacher, public health service officer, case filler)? Give summary @ -No Was smoking cessation discussed for >3mins.? @ -No Was critical care preformed (if so, how long)? @ -No Were there social determinants of health that impacted care today? How? (Homelessness, low income, unemployed, alcoholism, drug addiction, transportation, low edu. Level, literacy, decrease access to med. care, [facility], rehab)? @ -No Was there de-escalation of care discussed even if they declined (Discuss DNR or withdrawal of care, Hospice)? DNR status @ -No What co-morbidities impacted this encounter? (DM, HTN, Smoking, COPD, CAD, Cancer, CVA, ARF, Chemo, Hep., AIDS, mental health diagnosis, sleep apnea, morbid obesity)? @ -None Was patient admitted / discharged? Hospital course, mention meds given and route, prescriptions, significant lab abnormalities, going to OR and other p ertinent info. @ -38-year-old female presenting with chief complaint of lower abdominal cramping that started suddenly this evening. Accompanied by diarrhea. History and physical exam are conducted. WBC 13.9. CT scan is pending. Patient is signed out to the oncoming physician parts room assistant Nabila. (Nathalie Tomlinson) Case signed out to me by Nathalie Tomlinson PA-C, at shift change. CT scan of the abdomen and pelvis reviewed demonstrating prominent, mildly thickened small bowel loops in the left abdomen suggestive of enteritis. Patient did continue to complain of pain localized to the left lower quadrant where the thickened small bowel loops were described. She was initially treated with Bentyl, Toradol, IV fluids, and Zofran. She had initial improvement in symptoms, however pain then returned. She was then given a dose of morphine, which she felt was beneficial. Discussed that treatment for this is largely aimed at symptomatic control. Rx for Toradol, Bentyl, and Zofran provided with dosing instructions reviewed. Advised a low fat and bland liquid diet for the next few days as well. Patient discharged home in stable condition and will follow up with her PCP. Return precautions reviewed in depth, the patient is instructed to return to the emergency department with any new, worsening, or concerning symptoms. Patient verbalized understanding. This case was discussed in detail with the attending ED physician, Dr. Esqueda. Presentation, findings, and treatment plan discussed in detail as well. (Nabila Faustin) - Lab Data Lab Results 10/23/23 10/23/23 10/23/23 Range/Units 02:03 02:03 02:03 WBC 13.9 H (3.8-10.6) k/uL RBC 3.99 (3.80-5.40) m/uL Hgb 12.4 (11.4-16.0) gm/dL Hct 36.1 (34.0-46.0) % MCV 90.4 (80.0-100.0) fL MCH 31.1 (25.0-35.0) pg MCHC 34.4 (31.0-37.0) g/dL RDW 12.2 (11.5-15.5) % Plt Count 316 (150-450) k/uL MPV 7.2 Neutrophils % 72 % Lymphocytes % 21 % Monocytes % 5 % Eosinophils % 1 % Basophils % 0 % Neutrophils # 10.0 H (1.3-7.7) k/uL Lymphocytes # 2.9 (1.0-4.8) k/uL Monocytes # 0.7 (0-1.0) k/uL Eosinophils # 0.1 (0-0.7) k/uL Basophils # 0.0 (0-0.2) k/uL Sodium (137-145) mmol/L Potassium (3.5-5.1) mmol/L Chloride (98-107) mmol/L Carbon Dioxide (22-30) mmol/L Anion Gap mmol/L BUN (7-17) mg/dL Creatinine (0.52-1.04) mg/dL Est GFR (CKD-EPI)AfAm (>60 ml/min/1.73 sqM) Est GFR (CKD-EPI)NonAf (>60 ml/min/1.73 sqM) Glucose (74-99) mg/dL Plasma Lactic Acid Tip (0.7-2.0) mmol/L Calcium (8.4-10.2) mg/dL Total Bilirubin (0.2-1.3) mg/dL AST (14-36) U/L ALT (4-34) U/L Alkaline Phosphatase (38-126) U/L Total Protein (6.3-8.2) g/dL Albumin (3.5-5.0) g/dL Urine Color Light Yellow Urine Appearance Clear (Clear) Urine pH 5.5 (5.0-8.0) Ur Specific [place] 1.023 (1.001-1.035) Urine Protein Negative (Negative) Urine Glucose (UA) Negative (Negative) Urine Ketones Negative (Negative) Urine Blood Negative (Negative) Urine Nitrite Negative (Negative) Urine Bilirubin Negative (Negative) Urine Urobilinogen <2.0 (<2.0) mg/dL Ur Leukocyte Esterase Trace H (Negative) Urine RBC 1 (0-5) /hpf Urine WBC 4 (0-5) /hpf Ur Squamous Epith Cells 3 (0-4) /hpf Urine Mucus Few H (None) /hpf Urine HCG, Qual Not Detected (Not Detectd) 10/23/23 10/23/23 Range/Units 02:03 02:03 WBC (3.8-10.6) k/uL RBC (3.80-5.40) m/uL Hgb (11.4-16.0) gm/dL Hct (34.0-46.0) % MCV (80.0-100.0) fL MCH (25.0-35.0) pg MCHC (31.0-37.0) g/dL RDW (11.5-15.5) % Plt Count (150-450) k/uL MPV Neutrophils % % Lymphocytes % % Monocytes % % Eosinophils % % Basophils % % Neutrophils # (1.3-7.7) k/uL Lymphocytes # (1.0-4.8) k/uL Monocytes # (0-1.0) k/uL Eosinophils # (0-0.7) k/uL Basophils # (0-0.2) k/uL Sodium 140 (137-145) mmol/L Potassium 3.8 (3.5-5.1) mmol/L Chloride 109 H (98-107) mmol/L Carbon Dioxide 21 L (22-30) mmol/L Anion Gap 10 mmol/L BUN 14 (7-17) mg/dL Creatinine 0.67 (0.52-1.04) mg/dL Est GFR (CKD-EPI)AfAm >90 (>60 ml/min/1.73 sqM) Est GFR (CKD-EPI)NonAf >90 (>60 ml/min/1.73 sqM) Glucose 96 (74-99) mg/dL Plasma Lactic Acid Tip 1.6 (0.7-2.0) mmol/L Calcium 8.5 (8.4-10.2) mg/dL Total Bilirubin 0.3 (0.2-1.3) mg/dL AST 23 (14-36) U/L ALT 16 (4-34) U/L Alkaline Phosphatase 50 (38-126) U/L Total Protein 6.7 (6.3-8.2) g/dL Albumin 3.9 (3.5-5.0) g/dL Urine Color Urine Appearance (Clear) Urine pH (5.0-8.0) Ur Specific [place] (1.001-1.035) Urine Protein (Negative) Urine Glucose (UA) (Negative) Urine Ketones (Negative) Urine Blood (Negative) Urine Nitrite (Negative) Urine Bilirubin (Negative) Urine Urobilinogen (<2.0) mg/dL Ur Leukocyte Esterase (Negative) Urine RBC (0-5) /hpf Urine WBC (0-5) /hpf Ur Squamous Epith Cells (0-4) /hpf Urine Mucus (None) /hpf Urine HCG, Qual (Not Detectd) Disposition <Nathalie Tomlinson - Last Filed: 10/23/23 05:33> Is patient prescribed a controlled substance at d/c from ED?: No Time of Disposition: 08:45 <Nabila Faustin - Last Filed: 10/23/23 14:54> Clinical Impression: Enteritis Disposition: HOME SELF-CARE Instructions (If sedation given, give patient instructions): Enteritis (ED) Additional Instructions: Return to the emergency department with any new, worsening, or concerning symptoms. Take the Toradol with Tylenol as needed for pain relief. If you choose to take the Toradol, do not take any other anti-inflammatories such as ibuprofen, take one or the other. You can take the Zofran up to every 8 hours as needed for nausea and vomiting. Follow up with your primary care provider in 1-2 days. Prescriptions: Dicyclomine [Bentyl] 20 mg PO QID PRN #20 tablet PRN Reason: Dyspepsia Ketorolac [Toradol] 10 mg PO Q6HR PRN #15 tab PRN Reason: Pain Ondansetron Odt [Zofran Odt] 4 mg PO Q8HR PRN #15 tab PRN Reason: Nausea And Vomiting Referrals: Radha Angulo MD [Primary Care Provider] - 1-2 days
[2023-10-23 03:28] LABS: Appearance,Urine Clear (Clear); Bilirubin,Urine Negative (Negative); Blood,Urine Negative (Negative); Color,Urine Light Yellow; Glucose,Urine (UA) Negative (Negative); Ketones,Urine Negative (Negative); Leukocyte Esterase,Urine Trace (Negative); Mucus,Urine Few /hpf; Nitrite,Urine Negative (Negative); PH, Urine 5.5 (5.0-8.0); Protein,Urine Negative (Negative); RBC,Urine 1 /hpf (0-5); Specific Gravity,Urine 1.023 (1.001-1.035); Squamous Epithelial Cell,Urine 3 /hpf (0-4); Urobilinogen,Urine <2.0 mg/dL (<2.0); WBC,Urine 4 /hpf (0-5)
[2023-10-23] MEDS: DICYCLOMINE 10 MG/ML 2 ML AMP IM STA (03:51)
--- NOTE | 2023-10-23 06:44 | CT ---
EXAM: CT Abdomen and Pelvis With Intravenous Contrast CLINICAL HISTORY: ITS.REASON CT Reason: LLQ pain TECHNIQUE: Axial computed tomography images of the abdomen and pelvis with intravenous contrast. CTDI is 24.1 mGy and DLP is 1156.6 mGy-cm. This CT exam was performed using one or more of the following dose reduction techniques: automated exposure control, adjustment of the mA and/or kV according to patient size, and/or use of iterative reconstruction technique. COMPARISON: CT Abdomen Pelvis dated 06/24/22 FINDINGS: Lung bases: Unremarkable. No mass. No consolidation. ABDOMEN: Liver: Unremarkable. No mass. Gallbladder and bile ducts: Unremarkable. No calcified stones. No ductal dilation. Pancreas: Unremarkable. No mass. No ductal dilation. Spleen: Unremarkable. No splenomegaly. Adrenals: Unremarkable. No mass. Kidneys and ureters: Unremarkable. No solid mass. No hydronephrosis. Stomach and bowel: Mild colonic diverticulosis. Prominent, mildly thickened small bowel loops in the left abdomen. No obstruction. PELVIS: Appendix: Normal appendix. Bladder: Unremarkable. No mass. Reproductive: Unremarkable as visualized. ABDOMEN and PELVIS: Intraperitoneal space: Small amount of free fluid in the pelvis. No free air. Bones/joints: No acute fracture. No dislocation. Soft tissues: Unremarkable. Vasculature: Unremarkable. No abdominal aortic aneurysm. Lymph nodes: Unremarkable. No enlarged lymph nodes. IMPRESSION: 1. Prominent, mildly thickened small bowel loops in the left abdomen. May represent enteritis. 2. Mild colonic diverticulosis.
[2023-10-23] MEDS: MORPHINE SULFATE 2 MG/ML SYRINGE IVP STA (07:23)
[2023-10-23 08:33] VITALS: RESP 16
[2023-10-23 09:33] VITALS: BP 120/75; PULSE 76
== END 2023-10-23 09:12 | disposition home or self-care (01) ==
LOC: EC 01:39
DX: K52.9 Noninfective gastroenteritis and colitis, unspecified (principal); K63.89 Other specified diseases of intestine; M19.90 Unspecified osteoarthritis, unspecified site; E03.9 Hypothyroidism, unspecified; F90.9 Attention-deficit hyperactivity disorder, unspecified type; F12.90 Cannabis use, unspecified, uncomplicated; Z79.890 Hormone replacement therapy; Z79.899 Other long term (current) drug therapy; Z88.0 Allergy status to penicillin; Z87.891 Personal history of nicotine dependence
CPT/HCPCS: 99285; 96374; 96375 ×2; 96376; 96372; 96361; 36415; 80053; 83605; 85025; 81001; 81025; 74177; J0500; J2405; J2270; J1885; Q9967

== ENCOUNTER → 2023-11-21 | Outpatient (CLI) | payer BC ==
--- NOTE | 2023-11-21 11:52 | CA ---
Exercise Nuclear Stress Test Report Name: Kevin Painting Exam Date: 11/21/2023 10:01 Exam Location: [place] Stress Ht (in): 64 Wt (lb): 175 BSA: 1.85 Ordering Phys: Radha Angulo MD Referring Phys: Radha Angulo MD Technologist: Salvatore Ann Age: 38 Gender: F : 1985 Procedure CPT: Indications: R07.2 Precordial pain ICD-10 Codes: Patient History: Medications: Meds past 24 hrs: Pretest Chest Pain: STRESS TEST Silverio Protocol Exercise Duration (min:sec): 08:[address] Depressions (mm): Angina Score: Ortiz Score: Resting HR (bpm): 78 Peak HR (bpm): 166 Resting BP (mmHg): 110 / 83 Peak BP (mmHg): 168 / 75 MPHR: 182 Target HR: 155 % MPHR: 91 METS: 10.3 Total Dose: Peak Dose: Atropine: Double Product: 36990 BP Response: Stress Termination: TARGET HR REACHED/MAX EXERTION Stress Symptoms: NO SYMPTOMS Stress Summary: ECG ANALYSIS Resting ECG: Stress ECG: CONCLUSIONS Excellent exercise tolerance Excellent augmentation in the blood pressure and heart rate with exercise Normal electrocardiogram stress testing Dr. Slava Champion MD (Electronically Signed) Final Date: 21 November 2023 11:51
--- NOTE | 2023-11-22 15:06 | NM ---
EXAMINATION TYPE: NM stress cardiolite complete DATE OF EXAM: 11/21/2023 COMPARISON: NONE CLINICAL INDICATION: Female, 38 years old with history of R07.2 PRECORDIAL PAIN; TECHNIQUE: After the intravenous administration of 10.2 mCi Tc 99m Sestamibi - Rest images obtained 60 minutes post injection. The patient exercised using a JESSE protocol and 1 minute prior to peak exercise was injected with 24.4 mCi Tc 99m Sestamibi - Stress images obtained 27 minutes post injecti on. FINDINGS: Targeted heart rate (155 BPM) was achieved during performance of the study (165 bpm achieved with tot al exercise time of 8 minutes). Review of stress and rest SPECT images demonstrates a fixed perfusion defect along the mid to basal septal wall. No distinct perfusion abnormality. Gated analysis shows limited augmentation of the septal wall with an estimated left ventricular ejection fraction of 68 %. TID is calculated at 0.8, within normal limits. IMPRESSION: Fixed defect along the mid to basal septal wall. Gated analysis shows limited augmentation of this po rtion of the left ventricle as well. Correlate for the possibility of a prior infarct here. No discre te reversibility is seen.
== END | disposition home or self-care (01) ==
LOC: RADNMMAIN 08:00
PROVIDERS: ATTEND Internal Medicine
DX: R07.2 Precordial pain (principal)
CPT/HCPCS: 93017; 78452; A9500

== ENCOUNTER → 2024-01-08 | Outpatient (CLI) | payer BC ==
--- NOTE | 2024-01-08 19:41 | CA ---
Transthoracic Echo Report Name: Kevin Painting Age: 38 Gender: F : 1985 Exam Date: 01/08/2024 11:41 Exam Location: [place] Echo Ht (in): 64 Wt (lb): 175 Ordering Physician: Radha Angulo MD Attending/Referring Phys: [employer] Sharpshooter Nano White RDCS Procedure CPT: Indications: I25.2 OLD MYOCARDIAL INFARCTION Cardiac Hx: Technical Quality: Good Contrast 1: Total Dose (mL): Contrast 2: Total Dose (mL): MEASUREMENTS (Male / Female) Normal Values 2D ECHO LV Diastolic Diameter PLAX 4.5 cm 4.2 - 5.9 / 3.9 - 5.3 cm LV Systolic Diameter PLAX 3.3 cm IVS Diastolic Thickness 0.9 cm 0.6 - 1.0 / 0.6 - 0.9 cm LVPW Diastolic Thickness 0.9 cm 0.6 - 1.0 / 0.6 - 0.9 cm LV Relative Wall Thickness 0.4 RV Internal Dim ED PLAX 3.0 cm LA Systolic Diameter LX 3.5 cm 3.0 - 4.0 / 2.7 - 3.8 cm LV Diastolic Volume MOD BP 73.7 cm??? 67 - 155 / 56 - 104 cm??? LV Systolic Volume MOD BP 32.7 cm??? 22 - 58 / 19 - 49 cm??? LV Ejection Fraction MOD BP 55.6 % >= 55 % LV Cardiac Index MOD BP 1366.4 cm???/min???m??? LV Diastolic Volume MOD 4C 72.1 cm??? LV Systolic Volume MOD 4C 31.7 cm??? LV Ejection Fraction MOD 4C 56.0 % LV Cardiac Index MOD 4C 1345.1 cm???/min???m??? LV Diastolic Length 4C 7.1 cm LV Systolic Length 4C 6.0 cm LV Diastolic Volume MOD 2C 75.7 cm??? LV Systolic Volume MOD 2C 32.5 cm??? LV Ejection Fraction MOD 2C 57.1 % LV Cardiac Index MOD 2C 1441.5 cm???/min???m??? LV Diastolic Length 2C 7.1 cm LV Systolic Length 2C 5.6 cm LA Volume 56.6 cm??? 18 - 58 / 22 - 52 cm??? LA Volume Index 29.5 cm???/m??? 16 - 28 cm???/m??? M-MODE Aortic Root Diameter MM 2.8 cm MV E Point Septal Separation 0.3 cm AV Cusp Separation MM 2.2 cm DOPPLER MV Area PHT 3.0 cm??? Mitral E Point Velocity 78.6 cm/s Mitral A Point Velocity 57.6 cm/s Mitral E to A Ratio 1.4 MV Deceleration Time 249.5 ms TR Peak Velocity 237.1 cm/s TR Peak Gradient 22.5 mmHg Right Ventricular Systolic Press 27.1 mmHg FINDINGS Left Ventricle Left ventricular ejection fraction is estimated at 55-60 %. Left ventricular cavity size normal. Left ventricular wall thickness normal. No obvious regional wall motion abnormalities. Right Ventricle Normal right ventricular size. Right ventricular systolic pressure within normal limits. Right Atrium Normal right atrial size. Left Atrium Mildly increased left atrial volume. Mitral Valve Structurally normal mitral valve. No evidence for mitral valve prolapse. No mitral stenosis. Trace to mild mitral regurgitation. Aortic Valve Trileaflet aortic valve. No aortic valve stenosis or regurgitation. Tricuspid Valve Structurally normal tricuspid valve. Mild tricuspid regurgitation. Pulmonic Valve Structurally normal pulmonic valve. No pulmonic regurgitation. Pericardium No pericardial effusion. Aorta Normal size aortic root and proximal ascending aorta. CONCLUSIONS Normal LV systolic function Normal RV systolic function Overall normal intracardiac valves No evidence of pericardial effusion Normal aortic root and proximal ascending aorta Normal pulmonary artery systolic pressure Previewed by: Dr. Slava Champion MD (Electronically Signed) Final Date: 08 January 2024 19:40
== END | disposition home or self-care (01) ==
LOC: RADECHMAIN 11:18
PROVIDERS: ATTEND Internal Medicine
DX: I25.2 Old myocardial infarction (principal)
CPT/HCPCS: 93306